=== PATIENT | female | born 1990 | race Caucasian/White ===

== ENCOUNTER 2016-07-09 20:24 | Emergency (ER) | payer OTHER ==
[~2016-07-09] VITALS: Ht 149.9 cm; Wt 55.8 kg
[~2016-07-09 20:24] MED LIST: AMRIX15 M1 PO; BOTOX100 UNIT; BUSPIRONE HCL5 M1 PO; CIPRO 250MG250 MG PO; CLARITIN10 MG PO; CYCLOBENZAPRINE5 M1 PO; CYCLOBENZAPRINE5 M2 PO; DEPO-PROVE150 MG/11 IM; DICLOFENAC POTA50 M1 PO; DICLOFENAC POTA50 MG PO; IBUPROFEN600 M1 PO; LIDODERM1 EACH TOP; MEDROL4 M2 PO; MINASTRIN 24 FE1 KIT PO; NAPROXEN SODIU550 M1 PO; PAROXETINE20 MG PO; PAXIL10 MG PO; PERCOCET 5-3251 EACH PO; POLYTRIM O200 GTT/BO OS; PROCHLORPERAZINE5 M1 PO; PROCHLORPERAZINE5 M2 PO; PYRIDIUM100 MG PO; TRAMADOL-ACETA1 EACH PO; TRAMADOL/APAP 31 TAB PO; VALIUM5 M2 PO; VYVANSE50 MG PO; ZANAFLEX2 M2 PO; ZOFRAN4 M1 SL; ZOFRAN4 M2 PO
[2016-07-09 22:04] LABS: ABSOLUTE BASOPHIL COUNT 0 /CUMM (0.0-0.2); ABSOLUTE EOSINOPHIL COUNT 0 /CUMM (0.0-0.7); ABSOLUTE GRANULOCYTE CT 7.5 /CUMM (1.4-6.5); ABSOLUTE LYMPH COUNT 1.1 /CUMM (1.2-3.4); ABSOLUTE MONOCYTE COUNT 0.4 /CUMM (0.10-0.60); BASOPHIL % 0.1 % (0.0-2.0); EOSINOPHIL % 0 % (0-5); GRANULOCYTE % 82.7 % (42.2-75.2); HEMATOCRIT 38.1 % (37-47); MEAN CORPUSCULAR HGB 26.5 PG (27.0-31.0); MEAN CORPUSCULAR HGB CONC 33.4 G/DL (33.0-37.0); MEAN CORPUSCULAR VOLUME 79.3 FL (81.0-99.0); MEAN PLATELET VOLUME 8.1 FL (7.4-10.4); PLATELET COUNT 393 /CUMM (130-400); RBC DISTRIBUTION WIDTH 13.5 % (11.5-14.5); WHITE BLOOD CELL COUNT 9.1 /CUMM (4.8-10.8)
--- NOTE | 2016-07-09 22:36 | ED GI/GU/ABDOMINAL COMPLAINT ---
History of Present Illness General Chief Complaint: General Adult Stated Complaint: "ABD PAIN X1DAY, BACK/CHEST PAIN" Source: patient, family, old records Exam Limitations: no limitations Vital Signs & Intake/Output Vital Signs & Intake/Output Vital Signs Date Time Temp Pulse Resp B/P Pulse O2 O2 Flow FiO2 Ox Delivery Rate 07/09 2201 112 07/09 2028 99.7 149 20 145/90 100 Room Air ED Intake and Output 07/10 0000 07/09 1200 Intake Total Output Total Balance Patient 123 lb Weight Allergies Coded Allergies: ciprofloxacin (From CIPRO) (FLU LIKE SX 07/09/16) hydroxychloroquine (From PLAQUENIL) (HIVES 07/09/16) sulfamethoxazole (From Bactrim) (HIVES 07/09/16) trimethoprim (From Bactrim) (HIVES 07/09/16) Reconcile Medications Botulinum Toxin Type A (Botox) 100 UNIT VIAL EXCESSIVE SWEATING (Reported) Buspirone HCl 5 MG TABLET 1 TAB PO BID (Reported) CYCLOBENZAPRINE HCL (Cyclobenzaprine Hydrochloride) 5 MG TABLET 1 TAB PO PRN MIGRAINE (Reported) Cyclobenzaprine HCl (Amrix) 15 MG CAP.ER.24H 1 CAP PO DAILY (Reported) Cyclobenzaprine HCl 5 MG TABLET 1 TAB PO PRN MIGRAINES (Reported) Diazepam (Valium) 5 MG TABLET 1-2 TAB PO Q6P PRN muscle strain/spasm Diclofenac Potassium 50 MG TABLET 1 TAB PO PRN MIGRAINE (Reported) Hydrocodone/Acetaminophen ([place] 5-325 Tablet) 5 MG-325 MG TABLET 1-2 TAB PO Q6P PRN PAIN Hyoscyamine Sulfate (Ed-Spaz) 0.125 MG TAB.RAPDIS 1-2 TAB PO Q6P PRN ABDOMINAL PAIN Lidocaine (Lidoderm) 1 EACH ADH..PATCH 1 PAT TOP DAILY PRN pain may wear up to 12 hours Lisdexamfetamine Dimesylate (Vyvanse) 50 MG CAPSULE 1 CAP PO QAM ADHD ( Reported) Medroxyprogesterone Acetate (Depo-Provera) 150 MG/1 ML SYRINGE 1 ML IM Q3M CONTROL (Reported) Methylprednisolone. (Medrol) 4 MG TAB.DS.PK 1 DP PO AD INFLAMMATION Ondansetron HCl (Zofran) 4 MG TABLET 1 TAB PO Q6 NAUSEA (Reported) Oxycodone HCl/Acetaminophen (Percocet 5-325 MG Tablet) 1 EACH TABLET 1-2 TAB PO Q6P PRN severe pain Prochlorperazine Maleate 5 MG TABLET 1 TAB PO PRN MIGRAINES (Reported) Promethazine HCl 25 MG TABLET 1 TAB PO Q6P PRN NAUSEA/VOMITING Tizanidine HCl (Zanaflex) 2 MG CAPSULE 1 CAP PO BID (Reported) Tramadol HCl/Acetaminophen (Tramadol-Acetaminophn 37.5-325) 1 EACH TABLET 1 TAB PO Q4-6 PRN PRN PAIN (Reported) Triage Note: TRIAGE: PT TO ER C/C LLQ ABD PAIN AND CHEST DISCOMFORT WITH BREATHING. DESCRIBES PRESSURE. FELT DIZZY WHILE OBTAINING VITAL SIGNS AT TRIAGE. HR 149, CONFIRMED MANUALLY. EKG ORDERED. PT TO ER WITH FATHER. Triage Nurses Notes Reviewed? yes ? n Is pt currently ? No HPI: Patient presents for evaluation of bilateral lower quadrant abdominal pain that began suddenly yesterday. Past History Travel History Traveled to [place] past 21 day No Medical History Any Pertinent Medical History? 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 No Review of Systems Review of Systems Constitutional: Reports: no symptoms. EENTM: Reports: no symptoms. Respiratory: Reports: no symptoms. Cardiovascular: Reports: chest pain. GI: Reports: see HPI. Genitourinary: Reports: no symptoms. Musculoskeletal: Reports: see HPI. Skin: Reports: no symptoms. Neurological/Psychological: Reports: no symptoms. Hematologic/Endocrine: Reports: no symptoms. Immunologic/Allergic: Reports: no symptoms. All Other Systems: Reviewed and Negative Physical Exam Physical Exam Gastrointestinal: SEE BELOW Comments: Gen.: Well-nourished, well-developed, no acute respiratory distress. Head: Normocephalic, atraumatic. Eyes: Normal inspection bilaterally Ears: Normal inspection bilaterally Nose: Normal inspection Throat/mouth : Moist mucosa Neck: Supple, full range of motion, no goiter Heart: Regular rate and rhythm, no murmurs rubs or gallops Lungs: Clear to auscultation bilaterally with normal air entry Chest: Nontender Back: Normal range of motion Abdomen: Soft, lower quadrant abdominal tenderness without rebound or guarding, nondistended, normal bowel sounds Extremities: Normal range of motion grossly, equal radial pulses, no cyanosis clubbing or edema Neurologic: Cranial nerves grossly intact, speech is clear Skin: warm and dry Psychiatric: Calm, cooperative, no apparent delusions or hallucinations Core Measures ACS in differential dx? No Severe Sepsis Present: No Septic Shock Present: No Progress Differential Diagnosis: appendicitis, inflamm bowel dis, ovarian cyst, UTI/pyelo Plan of Care: Orders Procedure Date/time Status LACTIC ACID 07/10 18 Active URINE 07/09 2131 Complete URINALYSIS 07/09 2131 Complete LACTIC ACID 07/09 2118 Complete COMPREHENSIVE METABOLIC PANEL 07/09 2118 Complete CBC WITHOUT DIFFERENTIAL 07/09 2118 Complete EKG 07/09 2032 Active Current Medications Sig/Pratibha Start time Last Medication Dose Stop Time Status Admin Morphine Sulfate 2 MG ONCE ONE 07/10 14 AC (Morphine) 07/10 15 Promethazine HCl 12.5 MG ONCE ONE 07/10 14 AC (Phenergen) 07/10 15 Laboratory Tests 07/09/162134: Anion Gap 12, Estimated GFR > 60, BUN/Creatinine Ratio 18.8, Glucose 128 H, Lactic Acid 2.2 H, Calcium 9.8, Total Bilirubin 0.4, AST 19, ALT 30, Alkaline Phosphatase 84, Total Protein 7.1, Albumin 4.4, Globulin 2.7, Albumin/Globulin Ratio 1.6, CBC w Diff NO MAN DIFF REQ, RBC 4.80, MCV 79.3 L, MCH 26.5 L, RDW 13.5, MPV 8.1, Gran % 82.7 H, Lymphocytes % 12.7 L, Monocytes % 4.5, Eosinophils % 0, Basophils % 0.1, Absolute Granulocytes 7.5 H, Absolute Lymphocytes 1.1 L, Absolute Monocytes 0.4, Absolute Eosinophils 0, Absolute Basophils 0, PUBS MCHC 33.4, Urine Color YEL, Urine Clarity CLEAR, Urine pH 7.5, Ur Specific Apex 1.020, Urine Protein 30 H, Urine Ketones TRACE H, Urine Nitrite NEG, Urine Bilirubin NEG, Urine Urobilinogen 0.2, Ur Leukocyte Esterase NEG, Ur Microscopic SEDIMENT EXAMINED, Urine RBC 5-10 H, Urine WBC 1-3 H, Ur Epithelial Cells FEW, Urine Mucus MANY H, Urine Hemoglobin SMALL H, Urine Glucose NEG, Urine Test NEGATIVE Diagnostic Imaging: Discussed w/RAD: CT Scan. Radiology Impression: PATIENT: TANIA MILNER PRESENT AGE: 26 PATIENT ACCOUNT NO: [id number] : 92 LOCATION: [facility] ORDERING PHYSICIAN: PETAR AREVALO MD SERVICE DATE: 07/09/16 EXAM TYPE: CAT - CT ABD & PELVIS W IV CONTRAST EXAMINATION: CT ABDOMEN AND PELVIS WITH CONTRAST CLINICAL INFORMATION: Right lower quadrant abdominal pain. COMPARISON: CT abdomen and pelvis with contrast 01/02/2011. TECHNIQUE: Multidetector volumetric imaging was performed of the abdomen and pelvis before and after the IV administration of 94 mL of Optiray 320 intravenous contrast. Sagittal and coronal reformatted images were obtained on the technologist's workstation. DLP: 261 mGy-cm FINDINGS: LUNG BASES: The visualized lung bases are unremarkable. LIVER, GALLBLADDER, AND BILIARY TREE: The liver is normal in size, shape, and attenuation. No focal hepatic lesion or biliary ductal dilatation is present. The gallbladder is contracted, without evidence of radiopaque gallstones or obvious pericholecystic inflammatory changes. PANCREAS: Unremarkable. SPLEEN: Unremarkable. ADRENAL GLANDS: Unremarkable. KIDNEYS AND URETERS: The kidneys are normal in size and enhance homogeneously, without focal lesions. There is no appreciable nephrolithiasis or hydroureteronephrosis of either kidney or renal collecting system. No ureteral stones are identified. BLADDER: Unremarkable. GASTROINTESTINAL TRACT: Normal anatomic orientation of the stomach relative to the duodenum. Normal caliber of abdominal and pelvic bowel loops, without evidence of obstruction or ileus. No circumferential bowel wall thickening with surrounding inflammatory changes to suggest an underlying infectious or inflammatory enterocolitis. Normal-appearing appendix within the right lower quadrant of the abdomen. No organizing intra-abdominal fluid collections or free intraperitoneal air. ABDOMINAL WALL: No significant hernia is appreciated. LYMPH NODES: No significant abdominal or pelvic adenopathy. VASCULAR: Patent abdominal vasculature. Normal course and caliber of the abdominal aorta and its branching vessels, without aneurysmal dilatation. PELVIC VISCERA: A tubular hypodense device within the vagina corresponds to a tampon. The pelvic viscera otherwise appears unremarkable. OSSEOUS STRUCTURES: No acute osseous abnormality. Normal alignment of the imaged thoracolumbar spine. IMPRESSION: No acute findings within the abdomen or pelvis to explain patient symptomatology. Normal-appearing appendix within the right lower quadrant of the abdomen. DICTATED BY: SCARLET CRUZ MD DATE/TIME DICTATED:07/09/162315 REO ASSET MANAGER:ALMA DATE/TIME TRANSCRIBED:07/09/162315 CONFIDENTIAL, DO NOT COPY WITHOUT APPROPRIATE AUTHORIZATION. <Electronically signed in Other Vendor System> SIGNED BY: SCARLET CRUZ MD 07/09/16 0053 Initial ED EKG: none Comments: 07/10/2016 12:01:27 AM I have updated TANIA on her test results. I explained the cause of her abdominal pain is unclear at this point. She is still having some discomfort but feels a little better. Her heart rate has improved. She appears more comfortable clinically. I will order additional symptomatic medications and discharge her with prescriptions and recommendations to follow up with her primary care physician. Departure Departure Disposition: HOME OR SELF CARE Condition: Stable Clinical Impression Primary Impression: Nonspecific abdominal pain Referrals: DESTINY ROLON,MICHAEL Upton (PCP/Family) Additional Instructions: Phenergan as needed for nausea or vomiting. Levsin as needed for abdominal pain. Add [place]an[place] for pain if needed as well. Follow-up with your primary care physician on Monday for reevaluation and return to the emergency department immediately if any concerns or sudden worsening. Please note that there might be incidental findings in your evaluation that are unrelated to the current emergency department visit. Please notify your primary care doctor about this emergency department visit in order to obtain and review all of the testing performed so that these incidental findings can be monitored as needed. If you had an x-ray performed, please understand that some fractures may not be seen on the initial set of x-rays. If your symptoms persist you might need a repeat set of x-rays to check for such a fracture. If you had a laceration evaluated, please understand that foreign bodies such as glass or wood may not be visible to the naked eye or on plain x-rays. If the wound becomes red, swollen, increasingly more painful or if there is any drainage from the wound, please have it reevaluated by a physician for the possibility of a retained foreign body. Thank you for choosing the [facility] Emergency Department for your care. It was a pleasure to serve you today. Petar Arevalo M.D. [facility] Departure Forms: Customer Survey General Discharge Information Prescriptions: Current Visit Scripts Promethazine HCl 1 TAB PO Q6P PRN NAUSEA/VOMITING #12 TAB Hyoscyamine Sulfate (Ed-Spaz) 1-2 TAB PO Q6P PRN ABDOMINAL PAIN #20 TAB Hydrocodone/Acetaminophen ([place] 5-325 Tablet) 1-2 TAB PO Q6P PRN PAIN #10 TAB Critical Care Note Critical Care Note Critical Care Time: 30-74 min
--- NOTE | 2016-07-09 23:38 | CT SCAN REPORT ---
EXAMINATION: CT ABDOMEN AND PELVIS WITH CONTRAST CLINICAL INFORMATION: Right lower quadrant abdominal pain. COMPARISON: CT abdomen and pelvis with contrast 01/02/2011. TECHNIQUE: Multidetector volumetric imaging was performed of the abdomen and pelvis before and after the IV administration of 94 mL of Optiray 320 intravenous contrast. Sagittal and coronal reformatted images were obtained on the technologist's workstation. DLP: 261 mGy-cm FINDINGS: LUNG BASES: The visualized lung bases are unremarkable. LIVER, GALLBLADDER, AND BILIARY TREE: The liver is normal in size, shape, and attenuation. No focal hepatic lesion or biliary ductal dilatation is present. The gallbladder is contracted, without evidence of radiopaque gallstones or obvious pericholecystic inflammatory changes. PANCREAS: Unremarkable. SPLEEN: Unremarkable. ADRENAL GLANDS: Unremarkable. KIDNEYS AND URETERS: The kidneys are normal in size and enhance homogeneously, without focal lesions. There is no appreciable nephrolithiasis or hydroureteronephrosis of either kidney or renal collecting system. No ureteral stones are identified. BLADDER: Unremarkable. GASTROINTESTINAL TRACT: Normal anatomic orientation of the stomach relative to the duodenum. Normal caliber of abdominal and pelvic bowel loops, without evidence of obstruction or ileus. No circumferential bowel wall thickening with surrounding inflammatory changes to suggest an underlying infectious or inflammatory enterocolitis. Normal-appearing appendix within the right lower quadrant of the abdomen. No organizing intra-abdominal fluid collections or free intraperitoneal air. ABDOMINAL WALL: No significant hernia is appreciated. LYMPH NODES: No significant abdominal or pelvic adenopathy. VASCULAR: Patent abdominal vasculature. Normal course and caliber of the abdominal aorta and its branching vessels, without aneurysmal dilatation. PELVIC VISCERA: A tubular hypodense device within the vagina corresponds to a tampon. The pelvic viscera otherwise appears unremarkable. OSSEOUS STRUCTURES: No acute osseous abnormality. Normal alignment of the imaged thoracolumbar spine. IMPRESSION: No acute findings within the abdomen or pelvis to explain patient symptomatology. Normal-appearing appendix within the right lower quadrant of the abdomen.
[2016-07-10] MEDS ORDERED: NORCO 5-325 TA1 EACH PO (00:05)
[2016-07-10] MEDS ORDERED: PROMETHAZINE HC25 M3 PO (00:05)
[2016-07-10] MEDS ORDERED: [UNRECOGNIZED DRUG - OTHER] PO (00:05)
[2016-07-10 00:09] VITALS: BP 112/78
== END 2016-07-10 01:01 ==
LOC: ERH 20:24
PROVIDERS: Emergency Medicine
DX: R10.31 Right lower quadrant pain (principal); R10.32 Left lower quadrant pain
CPT/HCPCS: 74177; 81001; 81025; 93005; 93010; 96361; 96374; 96375; J1885; J2550

== ENCOUNTER 2018-01-08 17:43 | Emergency (ER) | payer OTHER ==
[~2018-01-08] VITALS: Ht 149.9 cm; Wt 49.9 kg
[~2018-01-08 17:43] MED LIST changes: +CHERATUSSIN AC118 M1 PO; +DIFLUCAN150 M1 PO; +FLONASE ALLERG9.9 ML NAS; +KETOROLAC TROME10 M1 PO; +MOBIC15 M1 PO; +NORCO 5-325 TA1 EACH PO; +PROMETHAZINE HC25 M3 PO; +ROBAXIN500 M1 PO; +TAMIFLU75 M1 PO; +VALIUM2 M1 PO; +ZANAFLEX4 M2 PO; +ZOFRAN ODT4 M1 SL; +[UNRECOGNIZED DRUG - OTHER] PO
--- NOTE | 2018-01-08 21:25 | ED GENERAL ADULT ---
History of Present Illness General Chief Complaint: General Adult Stated Complaint: MID BACK PAIN/SOB Source: patient Exam Limitations: no limitations Allergies Coded Allergies: ciprofloxacin (From CIPRO) (FLU LIKE SX 05/04/17) sulfamethoxazole (From Bactrim) (HIVES 05/04/17) trimethoprim (From Bactrim) (HIVES 05/04/17) Triage Note: PT TO ED WITH C/O MID BACK PAIN "THIS HAPPENS A FEW TIMES A YEAR" TRIED TRAMADOL AND FLEXARIL AT HOME, NOT WORKING. Triage Nurses Notes Reviewed? yes Onset: Abrupt Duration: day(s): Timing: recent history Injury Environment: home No Modifying Factors: none : No Patient currently breastfeeds: No HPI: 27-year-old female comes into the emergency room for right-sided rib pain/back pain. Some associated shortness of breath. Denies any fever chills cough. Pain is worse with certain movements. Symptoms been going on for the past week. Denies any trauma. Denies any other system symptoms. (Alfonso FOWLER,Edward) Vital Signs & Intake/Output Vital Signs & Intake/Output Vital Signs Date Time Temp Pulse Resp B/P B/P Pulse O2 O2 Flow FiO2 Mean Ox Delivery Rate 01/09 0002 97 20 102/58 98 01/08 2236 98.6 96 20 102/75 98 Room Air 01/08 1802 96.5 01/08 1756 96.5 118 18 131/93 98 Room Air Room Air ED Intake and Output 01/09 0000 01/08 1200 Intake Total Output Total Balance Patient 110 lb Weight Weight Reported by Patient Measurement Method Reconcile Medications Botulinum Toxin Type A (Botox) 100 UNIT VIAL EXCESSIVE SWEATING (Reported) Buspirone HCl 5 MG TABLET 1 TAB PO BID (Reported) Codeine Phosphate/Guaifenesi (Cheratussin AC Syrup) 10 MG-100 MG/5 ML LIQUID 10 ML PO Q6H PRN COUGH CYCLOBENZAPRINE HCL (Cyclobenzaprine Hydrochloride) 5 MG TABLET 1 TAB PO PRN MIGRAINE (Reported) Cyclobenzaprine HCl (Amrix) 15 MG CAP.ER.24H 1 CAP PO DAILY (Reported) Cyclobenzaprine HCl 5 MG TABLET 1 TAB PO PRN MIGRAINES (Reported) Diazepam (Valium) 2 MG TABLET 1 TAB PO BID PRN pain Diazepam (Valium) 5 MG TABLET 1-2 TAB PO Q6P PRN muscle strain/spasm Diclofenac Potassium 50 MG TABLET 1 TAB PO PRN MIGRAINE (Reported) Fluconazole (Diflucan) 150 MG TABLET 1 TAB PO DAILY uti Fluticasone Propionate (Flonase Allergy Relief) 50 MCG/ACTUATION SPRAY.SUSP 2 SPRAY LINSEY ONCE DAILY PRN CONGESTION Hydrocodone/Acetaminophen ([place] 5-325 Tablet) 5 MG-325 MG TABLET 1-2 TAB PO Q6P PRN PAIN Hydrocodone/Acetaminophen ([place] 5-325 Tablet) 5 MG-325 MG TABLET 1-2 TAB PO Q4-6 PRN PRN PAIN Hyoscyamine Sulfate (Ed-Spaz) 0.125 MG TAB.RAPDIS 1-2 TAB PO Q6P PRN ABDOMINAL PAIN Ibuprofen 600 MG TABLET 1 TAB PO Q6PRN PRN pain with food Ketorolac Tromethamine 10 MG TABLET 1 TAB PO Q6P PRN pain Lidocaine (Lidoderm) 1 EACH ADH..PATCH 1 PAT TOP DAILY PRN pain may wear up to 12 hours Lidocaine (Lidoderm) 5 % ADH..PATCH 1 PAT TOP DAILY PRN PAIN may wear up to 12 hours Lisdexamfetamine Dimesylate (Vyvanse) 50 MG CAPSULE 1 CAP PO QAM ADHD ( Reported) Medroxyprogesterone Acetate (Depo-Provera) 150 MG/1 ML SYRINGE 1 ML IM Q3M CONTROL (Reported) Meloxicam (Mobic) 15 MG TABLET 1 TAB PO DAILY PRN PAIN Methocarbamol (Robaxin) 500 MG TABLET 1 TAB PO TID PRN MUSCLE SPASMS Methylprednisolone. (Medrol) 4 MG TAB.DS.PK 1 DP PO AD INFLAMMATION Ondansetron (Zofran Odt) 4 MG TAB.RAPDIS 1 TAB SL TID PRN NAUSEA Ondansetron HCl (Zofran) 4 MG TABLET 1 TAB PO Q6 NAUSEA (Reported) Oseltamivir Phosphate (Tamiflu) 75 MG CAPSULE 1 CAP PO BID INFLUENZA Oxycodone HCl/Acetaminophen (Percocet 5-325 MG Tablet) 5 MG-325 MG TABLET 1-2 TAB PO BID pain Oxycodone HCl/Acetaminophen (Percocet 5-325 MG Tablet) 1 EACH TABLET 1-2 TAB PO Q6P PRN severe pain Prochlorperazine Maleate 5 MG TABLET 1 TAB PO PRN MIGRAINES (Reported) Promethazine HCl 25 MG TABLET 1 TAB PO Q6P PRN NAUSEA/VOMITING Tizanidine HCl (Zanaflex) 2 MG CAPSULE 1 CAP PO BID (Reported) Tizanidine HCl (Zanaflex) 4 MG CAPSULE 1 CAP PO TID PRN muscle spasm Tramadol HCl/Acetaminophen (Tramadol-Acetaminophn 37.5-325) 1 EACH TABLET 1 TAB PO Q4-6 PRN PRN PAIN (Reported) (Saray Olvera) Past History Travel History Traveled to [place] past 21 day No Medical History Any Pertinent Medical History? 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 No (Edward Marmolejo) Review of Systems Review of Systems Constitutional: Reports: no symptoms. EENTM: Reports: no symptoms. Respiratory: Reports: see HPI. Cardiovascular: Reports: see HPI. GI: Reports: no symptoms. Genitourinary: Reports: no symptoms. Musculoskeletal: Reports: see HPI. Skin: Reports: no symptoms. Neurological/Psychological: Reports: no symptoms. Hematologic/Endocrine: Reports: no symptoms. Immunologic/Allergic: Reports: no symptoms. All Other Systems: Reviewed and Negative (Edward Marmolejo) Physical Exam Physical Exam General Appearance: well developed/nourished, no apparent distress, alert, awake Head: atraumatic Eyes: Bilateral: normal appearance, EOMI. Ears, Nose, Throat: normal ENT inspection, hearing grossly normal Neck: normal inspection Respiratory: normal breath sounds, no respiratory distress, chest wall tenderness right side/right back Cardiovascular: regular rate/rhythm, tachycardia Gastrointestinal: soft Back: right paraspinal tenderness Extremities: normal inspection Neurologic/Psych: awake, alert, oriented x 3 Skin: intact (Edward Marmolejo) Core Measures ACS in differential dx? No CVA/TIA Diagnosis: No Sepsis Present: No Sepsis Focused Exam Completed? No (Inez FOWLER,Saray) Progress Differential Diagnoses I considered the following diagnoses in my evaluation of the patient: Muscle strain, shingles, pulmonary embolism, costochondritis, Diagnostic Imaging: Viewed by Me: Radiology Read. Discussed w/RAD: Radiology Read. Radiology Impression: PATIENT: TANIA MILNER PRESENT AGE: 27 PATIENT ACCOUNT NO: [id number] : 92 LOCATION: [facility] ORDERING PHYSICIAN: Edward FOWLER SERVICE DATE: 01/08/18-2123 EXAM TYPE: RAD - XRY-CHEST XRAY, TWO VIEWS EXAMINATION: XR CHEST CLINICAL INFORMATION: Right rib pain. COMPARISON: Chest x-ray 06/23/2017 TECHNIQUE: 2 views of the chest were obtained. FINDINGS: No significant abnormality is noted involving the heart, lungs, mediastinum, bony thorax or soft tissues. IMPRESSION: Unremarkable examination. DICTATED BY: Dru Chapman MD DATE/TIME DICTATED:01/08/182255 CADASTRAL SURVEYOR:ALMA DATE/TIME TRANSCRIBED:01/08/182255 CONFIDENTIAL, DO NOT COPY WITHOUT APPROPRIATE AUTHORIZATION. <Electronically signed in Other Vendor System> SIGNED BY: Dru Chapman MD 01/08/18 2300 Initial ED EKG: normal sinus rhythm, rate (84) Comments: 01/08/18 Patient was signed out to vishnu wiley. Rib pain is reproducible. Worse with range of motion. Lab results are pending as well as chest x-ray. Pain appears to be more consistent with muscular skeletal pain but patient cannot be perc negative so d dimer pending. (Alfonso FOWLER,Edward) Differential Diagnoses I considered the following diagnoses in my evaluation of the patient: Plan of Care: Orders Procedure Date/time Status URINE 01/09 2124 Complete TROPONIN LEVEL 01/09 2124 Complete D-DIMER 01/09 2124 Complete COMPREHENSIVE METABOLIC PANEL 01/09 2124 Complete CBC WITHOUT DIFFERENTIAL 01/09 2124 Complete EKG 01/09 2124 Active Laboratory Tests 01/08/182214: Urine Test NEGATIVE 01/08/182208: Anion Gap 5, Estimated GFR > 60, BUN/Creatinine Ratio 22.9, Glucose 84, Calcium 9.3, Total Bilirubin 0.3, AST 17, ALT 26, Alkaline Phosphatase 58, Troponin I < 0.01, Total Protein 6.7, Albumin 3.9, Globulin 2.8, Albumin/Globulin Ratio 1.4, D-Dimer High Sensitivty < 200, CBC w Diff NO MAN DIFF REQ, RBC 4.43, MCV 82.7, MCH 28.2, MCHC 34.1, RDW 13.6, MPV 8.2, Gran % 50.4, Lymphocytes % 40.3, Monocytes % 6.5, Eosinophils % 2.3, Basophils % 0.5, Absolute Granulocytes 3.1, Absolute Lymphocytes 2.5, Absolute Monocytes 0.4, Absolute Eosinophils 0.1, Absolute Basophils 0 ------ 01/08/18 11:23PM Patient was signed out to me by VISHNU Hamilton with d-dimer pending. Patient is a 27-year-old female with intermittent chronic right hip pain presenting with acute on chronic right upper back pain. Reports pain that radiates to her right anterior chest, pain is worse with movement and feels like her prior episodes. Denies any recent strenuous activity or trauma. States that she normally comes emergency Department gets a dose of IV morphine and feels then feels better and goes home. On exam her pain is significantly reproducible with tenderness to palpation throughout the right upper thoracic muscles and right anterior chest wall. D-dimer was not elevated. EKG showed normal sinus rhythm and troponin was negative. Labs unremarkable. Chest x-ray unremarkable. Patient had no improvement in her pain after Percocet and Toradol. Was given a dose of IV morphine prior to discharge. Pain medications already sent to the pharmacy by VISHNU Hamilton. He'll follow up with her primary care provider, counseled on supportive care, and given should return precautions. Saray Wiley PA-C (Saray Olvera) Departure Departure Disposition: HOME OR SELF CARE Condition: Stable Clinical Impression Primary Impression: Rib pain on right side Referrals: Phyllis ROLON,Nilay Upton (PCP/Family) Additional Instructions: Take Percocet for pain. Follow-up with your primary care doctor. Return if any concerns worsening symptoms. Please go over all results of today's visit with your primary care doctor. Contact your primary care doctor to let them know you were here in the emergency room. There may be nonspecific findings which may not be related to your visit today here in the emergency room but may require further evaluation and chronic monitoring by your primary care doctor. If you had a laceration today the chance of foreign body always remains. You should follow-up with your primary care doctor for recheck in 3-5 days for a wound check. If you had an x-ray done there is a chance that a fracture could have been missed on initial read and you should follow-up with your primary care doctor for repeat x-rays if symptoms persist. If your blood pressure was elevated here in the emergency room please have rechecked by [facility] primary care doctor within the next 48. If you were prescribed a narcotic here in the emergency room or any type of controlled substances you're not allowed to drive while taking this medication or operate any type of heavy machinery. Narcotics can make you feel lightheaded dizziness nausea and can cause constipation. You may need to cotton picker operator a stool softener. Thank you for choosing [facility] emergency room. Please return to the emergency room immediately if you have any other concerns worsening of symptoms. Departure Forms: Customer Survey General Discharge Information Prescriptions: Current Visit Scripts Oxycodone HCl/Acetaminophen (Percocet 5-325 MG Tablet) 1-2 TAB PO BID #10 TAB (Edward Marmolejo) PA/CANDLE MAKER Co-Sign Statement Statement: ED Attending supervision documentation- [x] I saw and evaluated the patient. I have also reviewed all the pertinent lab results and diagnostic results. I agree with the findings and the plan of care as documented in the PA's/CANDLE MAKER's documentation. [] I have reviewed the ED Record and agree with the PA's/CANDLE MAKER's documentation. [] Additions or exceptions (if any) to the PAs/CANDLE MAKER's note and plan are summarized below: [] (Tonie ROLON,Neil Benito) Critical Care Note Critical Care Note Critical Care Time: non-applicable (Saray Olvera)
[2018-01-08 22:27] LABS: ABSOLUTE BASOPHIL COUNT 0 /CUMM (0.0-0.2); ABSOLUTE EOSINOPHIL COUNT 0.1 /CUMM (0.0-0.7); ABSOLUTE GRANULOCYTE CT 3.1 /CUMM (1.4-6.5); ABSOLUTE LYMPH COUNT 2.5 /CUMM (1.2-3.4); ABSOLUTE MONOCYTE COUNT 0.4 /CUMM (0.10-0.60); BASOPHIL % 0.5 % (0.0-2.0); EOSINOPHIL % 2.3 % (0-5); GRANULOCYTE % 50.4 % (42.2-75.2); HEMATOCRIT 36.6 % (37-47); MEAN CORPUSCULAR HGB 28.2 PG (27.0-31.0); MEAN CORPUSCULAR HGB CONC 34.1 G/DL (33.0-37.0); MEAN CORPUSCULAR VOLUME 82.7 FL (81.0-99.0); MEAN PLATELET VOLUME 8.2 FL (7.4-10.4); PLATELET COUNT 399 /CUMM (130-400); RBC DISTRIBUTION WIDTH 13.6 % (11.5-14.5); RED BLOOD CELL CT 4.43 /CUMM (4.20-5.40); WHITE BLOOD CELL COUNT 6.1 /CUMM (4.8-10.8)
[2018-01-08] MEDS ORDERED: PERCOCET 5-3251 EACH PO (22:43)
--- NOTE | 2018-01-08 23:00 | RADIOLOGY REPORT ---
EXAMINATION: XR CHEST CLINICAL INFORMATION: Right rib pain. COMPARISON: Chest x-ray 06/23/2017 TECHNIQUE: 2 views of the chest were obtained. FINDINGS: No significant abnormality is noted involving the heart, lungs, mediastinum, bony thorax or soft tissues. IMPRESSION: Unremarkable examination.
[2018-01-09 00:02] VITALS: BP 102/58
== END 2018-01-09 00:03 ==
LOC: ERH 17:43
PROVIDERS: Physician Assistant Medical
DX: R07.81 Pleurodynia (principal); M54.9 Dorsalgia, unspecified; R06.02 Shortness of breath
CPT/HCPCS: 71046; 81025; 93005; 93010; 96374; 96375; J1885